=== PATIENT | female | born 1960 | race Caucasian/White ===

== ENCOUNTER → 2022-10-22 | Outpatient (CLI) | payer OTHER ==
[2022-10-22 14:14] LABS: BASOPHILS ABSOLUTE AUTO 0.05 K/mm3 (0.00-0.23); BASOPHILS PERCENT AUTO 1 % (0-2); EOSINOPHILS ABSOLUTE AUTO 0.14 K/mm3 (0.00-0.68); EOSINOPHILS PERCENT AUTO 2 % (0-6); Hematocrit 40.3 % (33.0-51.0); Hemoglobin 13.9 g/dL (11.5-16.0); IMMATURE GRAN ABSOLUTE AUTO 0.01 K/mm3 (0.00-0.10); IMMATURE GRAN PERCENT AUTO 0 % (0-1); LYMPHOCYTES ABSOLUTE AUTO 1.23 K/mm3 (0.84-5.20); LYMPHOCYTES PERCENT AUTO 19 % (21-46); MONOCYTES PERCENT AUTO 8 % (4-13); Mean Corpuscular HGB 29.6 pg (26.0-34.0); Mean Corpuscular HGB Conc 34.5 g/dL (31.5-36.5); Mean Corpuscular Volume 86 fL (80-100); NEUTROPHILS ABSOLUTE AUTO 4.41 K/mm3 (1.96-9.15); NEUTROPHILS PERCENT AUTO 70 % (41-73); Platelet Count 233 K/mm3 (150-400); RDW Coefficient Variation 12.7 % (11.7-14.2); RDW Standard Deviation 39.8 fL (35.1-46.3); White Blood Cell Count 6.34 K/mm3 (4.00-11.30)
[2022-10-22 14:35] LABS: Albumin, Blood 4.1 g/dL (3.4-5.0); Albumin/Globulin Ratio 1.2 (0.8-1.8); Bilirubin, Total 0.6 mg/dL (0.1-1.0); Bun/Creatinine Ratio 16.1 (12.0-20.0); Calcium, Blood 9.4 mg/dL (8.5-10.1); Creatinine, Blood 0.93 mg/dL (0.40-1.00); Globulin, Blood 3.4 g/dL (2.2-4.0); Potassium, Blood 3.7 mmol/L (3.5-5.5); Thyroid Stimulating Hormone 1.663 uIU/mL (0.360-4.800); Total Protein, Blood 7.5 g/dL (6.4-8.2)
== END | disposition home or self-care (01) ==
LOC: LAB SHORT 14:11 → LAB 14:11
PROVIDERS: Family Medicine
DX: R00.2 Palpitations (principal)
CPT/HCPCS: 80053; 84443; 84484; 85025

== ENCOUNTER 2023-01-03 10:28 | Day surgery (SDC) | payer OTHER ==
[~2023-01-03] VITALS: Ht 170.2 cm; Wt 91.4 kg
[2023-01-03] MEDS ORDERED: LISI20 PO (11:07)
[2023-01-03] MEDS ORDERED: SYNTHROID100 M14 PO (11:17)
[2023-01-03] MEDS ORDERED: SYNTHROID88 MCG PO (11:18)
--- NOTE | 2023-01-03 11:37 | NUR ---
01/03/23 [address] MARIANO AND DR BATES [facility] ORDER CHANGED FROM CLINDAMYCIN TO CEFAZOLIN.
--- NOTE | 2023-01-03 11:46 | NUR ---
01/03/23 1146 Elda Rain ROPIVACAINE 0.5% 20 ML MIXED & VERIFIED W/ EPI 0.1 MG (1MG/ML) PER ORDER TO MAKE ROPIVACAINE 0.5% 1:200,000 FOR INJECTION AT [facility].
[2023-01-03 12:39] VITALS: BP 126/68
--- NOTE | 2023-01-03 13:02 | NUR ---
01/03/23 1302 ANA PATTERSON IV REMOVED, WNL
== END 2023-01-03 13:05 | disposition home or self-care (01) ==
LOC: ORSCSDS 10:28
PROVIDERS: Podiatrist Foot & Ankle Surgery
PROC: 0JBQ0ZX Excision of Right Foot Subcutaneous Tissue and Fascia, Open Approach, Diagnostic (ICD-10-PCS; principal; 2023-01-03 12:00)
DX: M67.471 Ganglion, right ankle and foot (principal); I10 Essential (primary) hypertension; E03.9 Hypothyroidism, unspecified; Z79.899 Other long term (current) drug therapy; Z79.82 Long term (current) use of aspirin
CPT/HCPCS: 88304; J0171; J0690; J1100; J1885; J2250; J2405; J2704; J2795; J3010; J7120